=== PATIENT | female | born 1965 | race Caucasian/White ===

== ENCOUNTER 2017-07-19 08:18 | Day surgery (SDC) | payer BC ==
[2017-07-18 10:10] LABS: EOSINOPHILS # (AUTO) 0.2 K/uL (0.0-0.4); EOSINOPHILS % (AUTO) 3.3 % (0.0-4.0); HEMATOCRIT 42.4 % (36-48); HEMOGLOBIN 13.9 g/dL (12.0-16.0); LYMPHOCYTES % (AUTO) 34.7 % (20.5-51.5); MEAN CORPUSCULAR HEMOGLOBIN 30 pg (27-31); MEAN CORPUSCULAR HGB CONC 33 % (32-36); MEAN CORPUSCULAR VOLUME 90 fL (79.0-98.0); MONOCYTES # (AUTO) 0.5 K/uL (0.0-1.0); MONOCYTES % (AUTO) 8.2 % (1.7-9.3); PLATELET COUNT (AUTO) 279 K/uL (130-430); RED BLOOD CELL COUNT(AUTO) 4.72 MIL/uL (4.2-6.2); RED CELL DISTRIBUTION WIDTH 12.3 % (9.0-15.0); WHITE BLOOD COUNT (AUTO) 5.8 K/uL (4.8-10.8)
[2017-07-18 10:14] LABS: NEUTROPHILS # (AUTO) 3.1 K/uL (1.8-7.7); NEUTROPHILS % (AUTO) 53.8 % (40.0-70.0)
[2017-07-18 10:22] LABS: HCG,QUAL RESULT NEGATIVE (NEGATIVE)
[2017-07-18 10:24] LABS: BILIRUBIN,URINE NEGATIVE (NEGATIVE); BLOOD, URINE 3+ (NEGATIVE); CLARITY/URINE HAZY (CLEAR); COLOR,URINE RED (YELLOW); GLUCOSE,URINE NEGATIVE (NEGATIVE); KETONES,URINE NEGATIVE (NEGATIVE); LEUKOCYTE ESTERASE ,URINE TRACE (NEGATIVE); NITRITE, URINE NEGATIVE (NEGATIVE); PROTEIN URINE TRACE (NEGATIVE); UROBILINOGEN,URINE 0.2 (0.2-1.0)
[2017-07-18 10:28] LABS: CALCIUM 8.9 mg/dL (8.4-11.0); CREATININE 0.65 mg/dL (0.55-1.30); POTASSIUM 3.8 mmol/L (3.5-5.1)
[2017-07-18 10:34] LABS: TOTAL BILIRUBIN 0.4 mg/dL (0.0-1.0)
[2017-07-18 10:48] LABS: BACTERIA,URINE FEW /HPF (None Seen); RBC,URINE 80-100 /HPF (0-3); WBC,URINE 0-3 /HPF (0-3)
[~2017-07-19] VITALS: Ht 165.1 cm; Wt 53.1 kg
[~2017-07-19 08:18] MED LIST: LR 1,000 ML IV SCH; METOCLOPRAMIDE HCL 10 MG/2 ML VIAL IVP PRN; MORPHINE SULFATE 10 MG/ML VIAL IVP PRN
[2017-07-19] MEDS ORDERED: ONDANSETRON HCL 4 MG/2 ML VIAL IVP PRN (08:45)
[2017-07-19] MEDS ORDERED: PROMETHAZINE HCL 25 MG/ML AMP IM PRN (08:45)
[2017-07-19] MEDS ORDERED: OXYCODONE/ACETAMINOPHEN 5-325 TABLET PO PRN ×2 (08:45)
[2017-07-19 10:33] VITALS: BP_SYST 132
== END 2017-07-19 10:20 | disposition home or self-care (01) ==
LOC: SDS 08:18 → SMU 08:19 → SDS 10:20
PROVIDERS: ATTEND Obstetrics & Gynecology
DX: N84.0 Polyp of corpus uteri (principal); I10 Essential (primary) hypertension; I73.00 Raynaud's syndrome without gangrene; L82.1 Other seborrheic keratosis; Q87.1 Congenital malformation syndromes predominantly associated with short stature; M35.00 Sjogren syndrome, unspecified; Z98.890 Other specified postprocedural states
CPT/HCPCS: 36415; 80053; 81000-TC; 84703; 85025; 86886; 86900; 86901; 88305; J7120